=== PATIENT | male | born 1975 | race Caucasian/White ===

== ENCOUNTER 2019-07-24 13:14 | Emergency (ER) | payer BC, OTHER ==
[2019-07-24] MEDS ORDERED: Sodium Chloride 0.9% 1,000 ML IV ONE ×2 (13:17→15:03)
[2019-07-24] MEDS ORDERED: Ketorolac 30 MG/ML SDV IVPUSH ONE (13:48)
[2019-07-24] MEDS ORDERED: Ondansetron 4 MG/2 ML SDV IVPUSH ONE (13:48)
[2019-07-24 14:13] LABS: BLOOD UREA NITROGEN,BUN 11 mg/dL (7.0-18.0); CARBON DIOXIDE,CO2 24.7 mmol/L (21.0-32.0); CHLORIDE,CL 104 mmol/L (98-107); GLUCOSE RANDOM 127 mg/dL (74-106); LIPASE 287 U/L (73-393); POTASSIUM,K 3.9 mmol/L (3.5-5.1); SODIUM,NA 141 mmol/L (136-148)
--- NOTE | 2019-07-24 14:30 | EDM.PDOC ---
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 Past medical history: As per history of present illness and as reviewed below otherwise noncontributory. Surgical history: As per history of present illness and as reviewed below otherwise noncontributory. Social history: No reported history of drug or alcohol abuse. Family history: As per history of present illness and as reviewed below otherwise noncontributory. Physical exam: HEENT: Atraumatic, normocephalic, pupils reactive, negative for conjunctival pallor or scleral icterus, mucous membranes moist, throat clear, neck supple, nontender, trachea midline. Lungs: Clear to auscultation, breath sounds equal bilaterally, chest nontender. Heart: S1S2, regular, negative for clicks, rubs, or JVD. Abdomen: Soft, nondistended, nontender. Negative for masses or hepatosplenomegaly. Negative for costovertebral tenderness. Pelvis: Stable nontender. Genitourinary: Deferred. Rectal: Deferred. Extremities: Atraumatic, negative for cords or calf pain. Neurovascular unremarkable. Neuro: Awake, alert, oriented. Cranial nerves II through XII unremarkable. Cerebellum unremarkable. Motor and sensory unremarkable throughout. Exam nonfocal. Diagnostics: [CBC CMP UA lipase Abdomen pelvis with ] Therapeutics: [9 Zofran Toradol Morphine Cipro Zofran Hale Follow-up general surgery er referral for this week ] Impression: [Abdominal pain Cholelithiasis ] Definitive disposition and diagnosis as appropriate pending reevaluation and review of above. abdominal Pain Score (Numeric/FACES): 10 - Related Data Allergies Allergy/AdvReac Type Severity Reaction Status Date / Time No Known Allergies Allergy Verified 07/24/19 13:30 Home Meds: Home Meds . [No Known Home Meds] 07/24/19 [History] Past Medical History - Past Health History Medical/Surgical History: Denies Medical/Surgical History - Infectious Disease History Infectious Disease History: Reports: Chicken Pox Social & Family History - Family History Family Medical History: Noncontributory - Tobacco Use Smoking Status *Q: Current Every Day Smoker Years of Tobacco use: 20 Packs/Tins Daily: 0.5 - Caffeine Use Caffeine Use: Reports: Coffee - Recreational Drug Use Recreational Drug Use: No ED ROS GENERAL - Review of Systems Review Of Systems: See Below ED EXAM, GENERAL - Physical Exam Exam: See Below Course - Vital Signs Last Recorded V/S: Last Vital Signs Temp 97.7 F 07/24/19 13:30 Pulse 88 07/24/19 16:16 Resp 18 07/24/19 16:16 BP 153/94 H 07/24/19 16:16 Pulse Ox 94 L 07/24/19 16:16 - Orders/Labs/Meds Orders: Active Orders 24 hr Category Date Time Status Ciprofloxacin in D5W [Cipro in D5W 400 MG/200 ML] 400 Med 07/24/19 15:15 Active mg Premix Bag 1 bag IV Q12H Medication Orders Ciprofloxacin/Dextrose 400 mg/ (Premix) 200 mls @ 200 mls/hr IV Q12H JOBY Last Infusion: 07/24/19 16:15 Dose: 200 mls/hr Infusion: 07/24/19 16:11 Dose: 0 mls/hr Admin: 07/24/19 15:40 Dose: 200 mls/hr Labs: Laboratory Tests 07/24/19 07/24/19 07/24/19 Range/Units 13:35 13:45 13:45 WBC 15.58 H (4.0-11.0) K/uL RBC 5.55 (4.50-5.90) M/uL Hgb 17.0 (13.0-17.0) g/dL Hct 48.2 (38.0-50.0) % MCV 86.8 (80.0-98.0) fL MCH 30.6 (27.0-32.0) pg MCHC 35.3 (31.0-37.0) g/dL RDW Std Deviation 43.5 (28.0-62.0) fl RDW Coeff of Lea 14 (11.0-15.0) % Plt Count 231 (150-400) K/uL MPV 9.80 (7.40-12.00) fL Neut % (Auto) 81.7 H (48.0-80.0) % Lymph % (Auto) 8.9 L (16.0-40.0) % [place] % (Auto) 9.1 (0.0-15.0) % Eos % (Auto) 0.1 (0.0-7.0) % Baso % (Auto) 0.2 (0.0-1.5) % Neut # (Auto) 12.7 H (1.4-5.7) K/uL Lymph # (Auto) 1.4 (0.6-2.4) K/uL [place] # (Auto) 1.4 H (0.0-0.8) K/uL Eos # (Auto) 0.0 (0.0-0.7) K/uL Baso # (Auto) 0.0 (0.0-0.1) K/uL Nucleated RBC % 0.0 /100WBC Nucleated RBCs # 0 K/uL Sodium 141 (136-148) mmol/L Potassium 3.9 (3.5-5.1) mmol/L Chloride 104 (98-107) mmol/L Carbon Dioxide 24.7 (21.0-32.0) mmol/L BUN 11 (7.0-18.0) mg/dL Creatinine 0.9 (0.8-1.3) mg/dL Est Cr Clr Drug Dosing 117.36 mL/min Estimated GFR (MDRD) > 60.0 ml/min Glucose 127 H (74-106) mg/dL Calcium 9.4 (8.5-10.1) mg/dL Total Bilirubin 0.4 (0.2-1.0) mg/dL AST 16 (15-37) IU/L ALT 63 (14-63) IU/L Alkaline Phosphatase 89 (46-116) U/L Total Protein 8.0 (6.4-8.2) g/dL Albumin 4.1 (3.4-5.0) g/dL Globulin 3.9 (2.6-4.0) g/dL Albumin/Globulin Ratio 1.1 (0.9-1.6) Lipase 287 (73-393) U/L Urine Color YELLOW Urine Appearance CLEAR Urine pH 6.0 (5.0-8.0) Ur Specific [place] >= 1.030 (1.001-1.035) Urine Protein 30 H (NEGATIVE) mg/dL Urine Glucose (UA) NEGATIVE (NEGATIVE) mg/dL Urine Ketones NEGATIVE (NEGATIVE) mg/dL Urine Occult Blood TRACE-INTACT H (NEGATIVE) Urine Nitrite NEGATIVE (NEGATIVE) Urine Bilirubin SMALL H (NEGATIVE) Urine Urobilinogen 1.0 (<2.0) EU/dL Ur Leukocyte Esterase NEGATIVE (NEGATIVE) Urine RBC 1-3 (0-2/HPF) Urine WBC 2-5 (0-5/HPF) Ur Epithelial Cells RARE (NONE-FEW) Amorphous Sediment LIGHT (NEGATIVE) Urine Bacteria RARE (NEGATIVE) Urine Mucus MODERATE (NONE-MOD) Meds: Medications Generic Name Dose Route Start Last Admin Trade Name Freq PRN Reason Stop Dose Admin Ciprofloxacin/Dextrose 400 mg/ 200 mls @ 200 mls/hr 07/24/19 15:15 07/24/19 16:15 Premix IV 200 mls/hr Q12H JOBY Infusion Discontinued Medications Generic Name Dose Route Start Last Admin Trade Name Freq PRN Reason Stop Dose Admin Sodium Chloride 1,000 mls @ 999 mls/hr 07/24/19 13:17 07/24/19 13:58 Normal Saline IV 07/24/19 14:17 999 mls/hr STAT ONE Administration Sodium Chloride 1,000 mls @ 999 mls/hr 07/24/19 15:03 07/24/19 15:40 Normal Saline IV 07/24/19 16:03 999 mls/hr STAT ONE Administration Ketorolac Tromethamine 30 mg 07/24/19 13:48 07/24/19 13:58 Toradol IVPUSH 07/24/19 13:49 30 mg ONETIME ONE Administration Morphine Sulfate 2 mg 07/24/19 15:58 07/24/19 16:12 Morphine IVPUSH 07/24/19 15:59 2 mg ONETIME ONE Administration Ondansetron HCl 8 mg 07/24/19 13:48 07/24/19 13:58 Zofran IVPUSH 07/24/19 13:49 8 mg ONETIME ONE Administration Departure - Departure Time of Disposition: 16:37 Disposition: Home, Self-Care 01 Condition: Good Clinical Impression: Abdominal pain, Cholelithiasis - Discharge Information Referrals: PCP,None [Primary Care Provider] - Forms: ED Department Discharge Additional Instructions: Patient is prescribed Return if symptoms persist or worsen ER referral for general surgery this week [facility] - General Surgery [address], [address] [place] [address] The following information is given to patients seen in the emergency department who are being discharged to home. This information is to outline your options for follow-up care. We provide all patients seen in our emergency department with a follow-up referral. The need for follow-up, as well as the timing and circumstances, are variable depending upon the specifics of your emergency department visit. If you don't have a primary care physician on staff, we will provide you with a referral. We always advise you to contact your personal physician following an emergency department visit to inform them of the circumstance of the visit and for follow-up with them and/or the need for any referrals to a consulting specialist. The emergency department will also refer you to a specialist when appropriate. This referral assures that you have the opportunity for follow-up care with a specialist. All of these measure are taken in an effort to provide you with optimal care, which includes your follow-up. Under all circumstances we always encourage you to contact your private physician who remains a resource for coordinating your care. When calling for follow-up care, please make the office aware that this follow-up is from your recent emergency room visit. If for any reason you are refused follow-up, please contact the [facility] emergency department at and asked to speak to the emergency department charge nurse. Sepsis Event Note - Evaluation Sepsis Screening Result: No Definite Risk - Focused Exam Vital Signs: Vital Signs Temp Pulse Resp BP Pulse Ox 07/24/19 16:16 88 18 153/94 H 94 L 07/24/19 13:30 97.7 F 92 20 151/104 H 93 L Date Exam was Performed: 07/24/19 Time Exam was Performed: 16:35 - My Orders Last 24 Hours: My Active Orders 07/24/19 15:15 Ciprofloxacin in D5W [Cipro in D5W 400 MG/200 ML] 400 mg Premix Bag 1 bag IV Q12H - Assessment/Plan Last 24 Hours: My Active Orders 07/24/19 15:15 Ciprofloxacin in D5W [Cipro in D5W 400 MG/200 ML] 400 mg Premix Bag 1 bag IV Q12H
--- NOTE | 2019-07-24 14:40 | CT ---
CT abdomen and pelvis Technique: Multiple axial sections were obtained from above the dome of the diaphragm inferiorly through the pubic symphysis. Intravenous and oral contrast not utilized. Comparison: No prior abdominal imaging is available. Findings: Visualized lung bases show nothing acute. Irregular fatty infiltration is seen within the liver. Single large calcified gallstone is seen within the gallbladder measuring 3.0 cm. Spleen size appears within normal limits. Adrenal glands show no nodule. Pancreas is within normal limits. Kidneys show no abnormal calcifications. No hydronephrosis is seen. No ureteral calculi are seen. Aorta shows no aneurysm. No retroperitoneal adenopathy is seen. Appendix is seen which is normal in size. No pelvic mass or adenopathy is seen. No free fluid or inflammatory change is appreciated. Impression: 1. Irregular fatty infiltration within the liver. 2. Single 3.0 cm calcified gallstone within the gallbladder. 3. No additional abnormality is appreciated on noncontrast CT study of the abdomen and pelvis. Diagnostic code #2 Study was dictated in [place] Standard Time
[2019-07-24] MEDS ORDERED: Ciprofloxacin in D5W 400 MG in Premix Bag 1 BAG IV SCH ×2 (15:15)
[2019-07-24] MEDS ORDERED: Morphine 2 MG/ML Syringe IVPUSH ONE (15:58)
== END 2019-07-24 16:56 | disposition home or self-care (01) ==
LOC: MW.ED 13:14
DX: K80.20 Calculus of gallbladder without cholecystitis without obstruction (principal); F17.210 Nicotine dependence, cigarettes, uncomplicated
CPT/HCPCS: 74176; 80053; 81001; 83690; 85025; 96361; 96365; 96375; 99284; J0744; J1885; J2270; J2405; J7030

== ENCOUNTER 2019-07-26 14:20 | Inpatient (IN) | payer OTHER ==
[2019-07-26] MEDS ORDERED: cefOXitin 2 GM in Premix Bag 1 BAG IV ONE ×2 (15:29→17:13)
[2019-07-26] MEDS ORDERED: Lactated Ringers 1,000 ML IV SCH (15:30)
[2019-07-26] MEDS ORDERED: Morphine 10 MG/ML Syringe IVPUSH PRN (15:32)
[2019-07-26] MEDS ORDERED: Morphine 10 MG/ML Syringe IVPUSH ONE (16:58)
[2019-07-26] MEDS ORDERED: Lactated Ringers 1,000 ML IV ONE (17:02)
[2019-07-26] MEDS ORDERED: Acetaminophen 325 MG Tab PO PRN (17:39)
[2019-07-26] MEDS: Acetaminophen/HYDROcodone 325-5 MG Tab PO PRN ×2 (17:54→23:20)
[2019-07-26] MEDS ORDERED: Morphine 10 MG/ML Syringe ONE (19:35)
[2019-07-26] MEDS ORDERED: cefOXitin 1 GM in Premix Bag 1 BAG IV SCH ×2 (19:45→23:15)
[2019-07-26] MEDS: Morphine 10 MG/ML Syringe IVPUSH PRN (19:46)
[2019-07-26] MEDS: cefOXitin 1 GM in Premix Bag 1 BAG IV SCH (23:23)
[2019-07-27] MEDS: Lactated Ringers 1,000 ML IV SCH ×3 (02:26→22:31)
[2019-07-27] MEDS: cefOXitin 1 GM in Premix Bag 1 BAG IV SCH ×4 (05:43→20:16)
[2019-07-27] MEDS ORDERED: Propofol 200 MG/20 ML SDV ONE (06:59)
[2019-07-27] MEDS ORDERED: Lidocaine 2% 5 ML SDV ONE (07:00)
[2019-07-27] MEDS ORDERED: Midazolam 1 MG/ML 2 ML SDV ONE (07:00)
[2019-07-27] MEDS ORDERED: Ondansetron 4 MG/2 ML SDV ONE (07:00)
[2019-07-27] MEDS ORDERED: Rocuronium 100 MG/10 ML Syringe ONE (07:00)
[2019-07-27] MEDS ORDERED: fentaNYL 250 MCG/5 ML SDV ONE ×2 (07:00→08:51)
[2019-07-27] MEDS ORDERED: ceFAZolin 1 GM Vial ONE (07:29)
[2019-07-27] MEDS ORDERED: Bupivacaine 0.5% 10 ML SDV ONE (07:29)
[2019-07-27] MEDS ORDERED: Bupivacaine 0.5% 30 ML SDV ONE (07:39)
--- NOTE | 2019-07-27 07:50 | PCM.PREANE ---
Preanesthetic Assessment - Anesthesia/Transfusion/Family Hx Anesthesia History: Prior Anesthesia Without Reaction Family History of Anesthesia Reaction: No Transfusion History: No Prior Transfusion(s) - Review of Systems General: No Symptoms Pulmonary: No Symptoms Cardiovascular: No Symptoms Gastrointestinal: No Symptoms Neurological: No Symptoms Other: Reports: None - Physical Assessment NPO Status Date: 07/26/19 Vital Signs: Last Vital Signs Temp 96.8 F 07/26/19 15:45 Pulse 111 H 07/26/19 15:45 Resp 18 07/26/19 15:45 BP 142/87 H 07/26/19 15:45 Pulse Ox 93 L 07/26/19 15:45 Height: 6 ft Weight: 123.785 kg ASA Class: 2 Airway Class: Mallampati = 2 Dentition: Reports: Normal Dentition ROM/Head Extension: Full Lungs: Clear to Auscultation, Normal Respiratory Effort Cardiovascular: Regular Rate, Regular Rhythm - Allergies Allergies/Adverse Reactions: Allergies Allergy/AdvReac Type Severity Reaction Status Date / Time No Known Allergies Allergy Verified 07/27/19 11:22 - Blood Blood Available: No - Anesthesia Plan Pre-Op Medication Ordered: None - Acknowledgements Anesthesia Type Planned: General Anesthesia Pt an Appropriate Candidate for the Planned Anesthesia: Yes Alternatives and Risks of Anesthesia Discussed w Pt/Guardian: Yes Pt/Guardian Understands and Agrees with Anesthesia Plan: Yes Additional Comments: PMH: smoker, anxiety PLAN: get PreAnesthesia Questionnaire - Past Health History Medical/Surgical History: Denies Medical/Surgical History HEENT History: Reports: Impaired Vision Other HEENT History: Pt wears glasses Respiratory History: Reports: Sleep Apnea Other Respiratory History: Pt states "I stop breathing in my sleep, my girlfriend tells me" and that he thinks he has sleep apnea, but has not been diagnosed Other Gastrointestinal History: pt is coming in to the hospital to have his gallbladder removed on 07/27/2019 Musculoskeletal History: Reports: Back Pain, Chronic Other Musculoskeletal History: Pt states that he has had chronic back pain for 15 years Psychiatric History: Reports: Anxiety - Infectious Disease History Infectious Disease History: Reports: Chicken Pox - Past Surgical History Head Surgeries/Procedures: Reports: None Respiratory Surgical History: Reports: None Musculoskeletal Surgical History: Reports: Other (See Below) Other Musculoskeletal Surgeries/Procedures:: pt states that he has had a Left knee scope Dermatological Surgical History: Reports: None - SUBSTANCE USE Smoking Status *Q: Current Every Day Smoker Tobacco Use Within Last Twelve Months: Cigarettes, Snuff/Dip Second Hand Smoke Exposure: Yes Days Per Week of Alcohol Use: 2 Number of Drinks Per Day: 5 Total Drinks Per Week: 10 Date of Last Drink: 07/22/19 Time of Last Drink: 00:00 Recreational Drug Use History: No - HOME MEDS Home Medications: Home Meds Acetaminophen/HYDROcodone [Gilson 325-5 MG] 1 tab PO Q6H PRN #25 tablet 07/30/19 [Rx] - CURRENT (IN HOUSE) MEDS Current Meds: Current Medications Discontinued Medications Acetaminophen (Tylenol) 325 mg PO Q4H PRN PRN Reason: Fever Greater Than 101 Hydrocodone Bitart/Acetaminophen (Gilson 325-5 Mg) 1 - 2 tab PO Q4H PRN PRN Reason: Pain (moderate 4-6) Cefoxitin Sodium 2 gm/ Premix 50 mls @ 100 mls/hr IV ONETIME ONE Stop: 07/26/19 17:06 Last Admin: 07/26/19 17:13 Dose: 100 mls/hr Cefoxitin Sodium 1 gm/ Premix 50 mls @ 100 mls/hr IV Q6H [facility] [place] Lactated Ringer's (Ringers, Lactated) 1,000 mls @ 125 mls/hr IV ASDIRECTED [facility] Last Admin: 07/26/19 17:02 Dose: 125 mls/hr Morphine Sulfate (Morphine) 0 mg IVPUSH Q1H PRN PRN Reason: Pain (severe 7-10) Last Admin: 07/26/19 16:58 Dose: 5 mg
[2019-07-27] MEDS ORDERED: Phenylephrine/Normal Saline 100 MCG/ML 10 ML Syringe ONE (08:31)
[2019-07-27] MEDS ORDERED: ePHEDrine 50 MG/ML SDV ONE (08:46)
[2019-07-27] MEDS ORDERED: HYDROmorphone 2 MG/ML Syringe ONE (09:31)
[2019-07-27] MEDS ORDERED: Sugammadex Sodium 200 MG/2 ML VIAL ONE (10:03)
[2019-07-27] MEDS ORDERED: Ketorolac 30 MG/ML SDV ONE (10:09)
[2019-07-27] MEDS ORDERED: Morphine 10 MG/ML Syringe IVPUSH PRN (10:40)
[2019-07-27] MEDS ORDERED: Albuterol 0.083% 2.5 MG/3 ML Neb Soln NEB PRN (10:49)
[2019-07-27] MEDS ORDERED: Atropine 0.1 MG/ML 10 ML Syringe IVPUSH PRN ×2 (10:49)
[2019-07-27] MEDS ORDERED: EPINEPHrine 1:10,000 1 MG/10 ML Syringe IVPUSH PRN (10:49)
[2019-07-27] MEDS ORDERED: 50% Dextrose in Water 50 ML Syringe IVPUSH PRN (10:49)
[2019-07-27] MEDS ORDERED: Naloxone 0.4 MG/ML Syringe IVPUSH PRN (10:49)
[2019-07-27] MEDS ORDERED: fentaNYL 100 MCG/2 ML SDV IVPUSH PRN (10:49)
--- NOTE | 2019-07-27 10:50 | PCM.OPNOTE ---
- General Post-Op/Procedure Note Date of Surgery/Procedure: 07/27/19 Operative Procedure(s): Attempted laparoscopic cholecystectomy with conversion to open cholecystectomy Pre Op Diagnosis: Cholelithiasis with cholecystitis Post-Op Diagnosis: Cholelithiasis with acute gangrenous cholecystitis Anesthesia Technique: General ET Tube (ASA II) Primary Surgeon: Carlos Quigley University Intern: Pallavi Kingsley University Intern: Dionne Howell Reason University Intern Was Necessary: Surgical exposure Fluid Replacement, Intraop: 2,200 Output, Urine Amount: 125 EBL in mLs: 150 Condition: Good Free Text/Narrative:: Intake & Output 07/26/19 07/27/19 07/27/19 19:59 03:59 11:59 Intake Total 2950 Balance 2950 DICTATION [id number] CPT CODE 94226
--- NOTE | 2019-07-27 11:42 | PCM.POSTAN ---
POST ANESTHESIA ASSESSMENT - MENTAL STATUS Mental Status: Alert, Oriented - VITAL SIGNS Vital Signs: Last Vital Signs Temp 98.1 F 07/27/19 10:43 Pulse 96 07/27/19 11:38 Resp 16 07/27/19 11:38 BP 129/97 H 07/27/19 11:38 Pulse Ox 95 07/27/19 11:38 - RESPIRATORY Respiratory Status: Respiratory Rate WNL, Airway Patent, O2 Saturation Stable - CARDIOVASCULAR CV Status: Pulse Rate WNL, Blood Pressure Stable - GASTROINTESTINAL GI Status: No Symptoms - POST OP HYDRATION Hydration Status: Adequate & Stable
[2019-07-27] MEDS: Morphine 10 MG/ML Syringe IVPUSH PRN ×5 (12:19→23:59)
--- NOTE | 2019-07-27 12:39 | OR ---
SURGEON: Carlos Quigley M.D. DATE OF PROCEDURE: 07/27/2019 OPERATION PERFORMED: Attempted laparoscopic cholecystectomy with conversion to open. PRIMARY SURGEON: Carlos Quigley MD. RAIL TECHNICIAN: wardrobe assistant: Pallavi Kingsley MD. ANESTHESIA: General endotracheal. ASA CLASSIFICATION: II. PREOPERATIVE DIAGNOSIS: Cholelithiasis. POSTOPERATIVE DIAGNOSIS: Cholelithiasis with gangrenous cholecystitis. ESTIMATED BLOOD LOSS: 150 mL. INTRAOPERATIVE FLUID REPLACEMENT: 2200 mL of crystalloid. INTRAOPERATIVE URINE OUTPUT: 125 mL. DESCRIPTION OF PROCEDURE: The patient was taken to the operating room, placed on the operating table in the supine position. Time-out was called for appropriate identification of the patient and procedure. Following satisfactory attainment of general endotracheal anesthesia, a Corley catheter was placed in the patient's urinary bladder. Thigh-high TEDs and sequential compression boots had been placed. Footboard was placed at the bed. A Corley catheter was placed. The abdomen was then prepped with DuraPrep solution. Sterile drapes were applied. Initial skin incision was made below the umbilicus. The incision had been preemptively infiltrated with 0.5% Marcaine solution. A skin incision was made and deepened through the subcutaneous tissue. Hemostasis was obtained with the use of electrocautery. The Veress needle was introduced into the peritoneal cavity. Saline drop test was positive. Carbon dioxide pneumoperitoneum was established with the relief initially set at 13 cm of water and subsequently increased to 15 cm. Once satisfactory pneumoperitoneum was established, 5 mm camera and port were placed through the infraumbilical incision. Under camera vision, 12 mm subxiphoid, 5 mm midclavicular, and 5 mm anterior axillary ports were placed. Again, each incision had preemptively been infiltrated with 0.5% Marcaine solution. With all our instruments in place, we could barely visualize the gallbladder secondary to dense adhesions from the omentum. I was able to tease some of these down, but the gallbladder was very acutely inflamed and it was not felt safe to proceed laparoscopically. Therefore, laparoscopic instrumentation was removed and the open instrumentation brought to the field. Right subcostal incision was made connecting the 12 mm subxiphoid, midclavicular, and anterior axillary incisions. Dissection was carried through the subcutaneous tissue obtaining hemostasis with the use of electrocautery. The right rectus sheath was divided with electrocautery. The rectus abdominis muscle was divided with electrocautery. The posterior rectus sheath and peritoneum were picked up between hemostats and sharply incised. This was then opened with the use of electrocautery. Adhesions were taken down. The gallbladder was violaceous in color with gangrenous changes. Packs were placed into the abdomen for exposure. It was necessary to decompress the gallbladder, which initially was done with the needle catheter and followed by regular gallbladder aspiration trocar. With that accomplished, I was able to grasp the gallbladder, although again it was acutely inflamed and basically came apart on me. Dissection medially was very difficult and hazardous. It was therefore elected to use a dome down technique. The peritoneal reflection off the gallbladder was incised and finger dissection was carried out against the bed of the gallbladder in the gallbladder liver interface avoiding injury to the liver. This was all taken down primarily with gentle blunt dissection using finger dissection as well as right angles and peanut dissection. Dissection was carried as far medially as we could see, and then again using gentle dissection with the right angle clamp, I was able to identify the cystic duct and cystic artery. These structures were serially hemoclipped as well as ligated with 2-0 Vicryl ties. The gallbladder was then amputated. Some bile had been spilled, although with only a solitary stone, there was no stone spilled. The right upper quadrant was then irrigated with several 100 mL of 1% Ancef solution. All fluid was aspirated, and the bed of the gallbladder inspected. No bleeding was noted, no bile leak was noted, and there did not appear to be any bile leak from the cystic duct. Surgicel was placed into the bed of the gallbladder. A large round Ayush drain was placed into the bed of the gallbladder through a separate stab incision on the abdominal wall. This was secured to the skin with a 2-0 silk suture. Our attention was now focused on closure of the abdominal cavity. The posterior rectus sheath and peritoneum were closed with running 0 Vicryl. The anterior rectus sheath and linea alba were closed with interrupted 0 Ethibond sutures. An On-Q catheter was placed in the subcutaneous tissue and secured to the skin with a Tegaderm. The subcutaneous tissue was then closed with 3-0 Vicryl. Skin edges were reapproximated with skin clips. The infraumbilical incision was closed in 2 layers approximating the subcutaneous tissue with 3-0 Vicryl and the skin with skin clips. Sterile dressings were applied and taped securely in place. Sponge, needle, and instrument counts were all correct. Corley catheter was removed prior to emergence from anesthesia. Following emergence from anesthesia and extubation, the patient was taken to recovery room in stable condition. VIVI / SANDRA /[id number]
[2019-07-27] MEDS: Acetaminophen/HYDROcodone 325-5 MG Tab PO PRN ×3 (12:57→22:32)
[2019-07-27] MEDS ORDERED: Ondansetron 4 MG/2 ML SDV IVPUSH PRN (16:28)
[2019-07-27] MEDS: Ondansetron 4 MG/2 ML SDV IVPUSH PRN (22:49)
[2019-07-28] MEDS: Acetaminophen/HYDROcodone 325-5 MG Tab PO PRN ×5 (02:59→22:46)
[2019-07-28] MEDS: cefOXitin 1 GM in Premix Bag 1 BAG IV SCH ×4 (02:59→20:52)
[2019-07-28] MEDS: Lactated Ringers 1,000 ML IV SCH ×2 (08:10→18:01)
--- NOTE | 2019-07-28 08:13 | PCM.SURGPN ---
- General Info Date of Service: 07/28/19 POD#: 1 Post-Op Diagnosis: Gangrenous cholecystitis w/ cholelithiasis Functional Status: Reports: Pain Controlled, Tolerating Diet, Ambulating, Urinating, Incentive Spirometry - Review of Systems General: Denies: Fever, Weakness, Fatigue HEENT: Reports: No Symptoms Pulmonary: Reports: Cough. Denies: Shortness of Breath, Pleuritic Chest Pain Cardiovascular: Denies: Chest Pain, Palpitations, Dyspnea on Exertion Gastrointestinal: Reports: Abdominal Pain (incisional pain only), Decreased Appetite, Flatus. Denies: Diarrhea, Hematochezia, Melena, Nausea, Vomiting Genitourinary: Denies: Dysuria, Frequency, Burning, Pain, Urgency Musculoskeletal: Reports: No Symptoms Skin: Reports: No Symptoms Neurological: Reports: No Symptoms Psychiatric: Reports: No Symptoms - Patient Data Vitals - Most Recent: Last Vital Signs Temp 97.5 F 07/28/19 04:46 Pulse 114 H 07/28/19 04:46 Resp 23 H 07/28/19 04:46 BP 160/92 H 07/28/19 04:46 Pulse Ox 93 L 07/28/19 04:46 Weight - Most Recent: 272 lb 14.4 oz I&O - Last 24 Hours: Intake & Output 07/27/19 07/28/19 07/28/19 19:59 03:59 11:59 Intake Total 850 2151 Output Total 740 915 Balance 110 1236 Med Orders - Current: Current Medications Acetaminophen (Tylenol) 325 mg PO Q4H PRN PRN Reason: Fever Greater Than 101 Hydrocodone Bitart/Acetaminophen ([place] 325-5 Mg) 1 - 2 tab PO Q4H PRN PRN Reason: Pain Last Admin: 07/28/19 02:59 Dose: 2 tab Hydrocodone Bitart/Acetaminophen ([place] 325-5 Mg) 1 - 2 tab PO Q4H PRN PRN Reason: Pain (moderate 4-6) Al Hydroxide/Mg Hydroxide (Mag-Al Plus) 30 ml PO Q3H PRN PRN Reason: Heartburn Albuterol (Proventil Neb Soln) 2.5 mg NEB ONETIME PRN PRN Reason: Wheezing Atropine Sulfate (Atropine 0.1 Mg/Ml) 0.5 mg IVPUSH ASDIRECTED PRN PRN Reason: Hypo-perfusion Atropine Sulfate (Atropine 0.1 Mg/Ml) 1 mg IVPUSH ASDIRECTED PRN PRN Reason: Hypo-Perfusion Dextrose/Water (Dextrose 50% In Water) 50 ml IVPUSH ASDIRECTED PRN PRN Reason: Hypoglycemia Epinephrine HCl (Epinephrine 1:10,000) 1 mg IVPUSH ASDIRECTED PRN PRN Reason: ACLS Guidelines Fentanyl (Sublimaze) 50 - 100 mcg IVPUSH Q5M PRN PRN Reason: Pain Lactated Ringer's (Ringers, Lactated) 1,000 mls @ 125 mls/hr IV ASDIRECTED [facility] Last Admin: 07/27/19 22:31 Dose: 125 mls/hr Lactated Ringer's (Ringers, Lactated) 1,000 mls @ 125 mls/hr IV ASDIRECTED [facility] Cefoxitin Sodium 1 gm/ Premix 50 mls @ 100 mls/hr IV Q6H [facility] Stop: 07/28/19 23:30 Last Admin: 07/28/19 02:59 Dose: 100 mls/hr Morphine Sulfate (Morphine) 0 mg IVPUSH Q1H PRN PRN Reason: Pain (severe 7-10) Last Admin: 07/27/19 23:59 Dose: 2 mg Morphine Sulfate (Morphine) 0 mg IVPUSH Q30M PRN PRN Reason: Pain Naloxone HCl (Narcan) 0.1 mg IVPUSH ASDIRECTED PRN PRN Reason: Respiratory Depression Ondansetron HCl (Zofran) 4 mg IVPUSH Q6H PRN PRN Reason: Nausea/Vomiting Last Admin: 07/27/19 22:49 Dose: 4 mg Ondansetron HCl (Zofran) 4 mg IVPUSH Q6H PRN PRN Reason: Nausea/Vomiting Discontinued Medications Bupivacaine HCl (Sensorcaine-Mpf 0.5%) Confirm Administered Dose 30 ml .ROUTE .STK-MED ONE Stop: 07/27/19 07:30 Bupivacaine HCl (Marcaine 0.5%) Confirm Administered Dose 120 ml .ROUTE .STK- MED ONE Stop: 07/27/19 07:40 Cefazolin Sodium (Ancef) Confirm Administered Dose 1 gm .ROUTE .STK-MED ONE Stop: 07/27/19 07:30 Ephedrine Sulfate (Ephedrine Sulfate) Confirm Administered Dose 50 mg .ROUTE .STK-MED ONE Stop: 07/27/19 08:47 Fentanyl (Sublimaze) Confirm Administered Dose 250 mcg .ROUTE .STK-MED ONE Stop: 07/27/19 07:01 Fentanyl (Sublimaze) Confirm Administered Dose 250 mcg .ROUTE .STK-MED ONE Stop: 07/27/19 08:52 Hydromorphone HCl (Dilaudid) Confirm Administered Dose 2 mg .ROUTE .STK-MED ONE Stop: 07/27/19 09:32 Cefoxitin Sodium 2 gm/ Premix 50 mls @ 100 mls/hr IV ONETIME ONE Stop: 07/26/19 15:58 Last Admin: 07/26/19 17:13 Dose: 100 mls/hr Cefoxitin Sodium 1 gm/ Premix 50 mls @ 100 mls/hr IV Q6H [facility] Lactated Ringer's (Ringers, Lactated) 1,000 mls @ 125 mls/hr IV ASDIRECTED [facility] Last Admin: 07/26/19 16:50 Dose: 125 mls/hr Cefoxitin Sodium 1 gm/ Premix 50 mls @ 100 mls/hr IV Q6H [facility] Stop: 07/28/19 23:30 Last Admin: 07/27/19 15:44 Dose: Not Given Ketorolac Tromethamine (Toradol) Confirm Administered Dose 30 mg .ROUTE .STK- MED ONE Stop: 07/27/19 10:10 Lidocaine (Xylocaine-Mpf 2%) Confirm Administered Dose 5 ml .ROUTE .STK-MED ONE Stop: 07/27/19 07:01 Midazolam HCl (Versed 1 Mg/Ml) Confirm Administered Dose 2 mg .ROUTE .STK-MED ONE Stop: 07/27/19 07:01 Morphine Sulfate (Morphine) 0 mg IVPUSH Q1H PRN PRN Reason: Pain (severe 7-10) Last Admin: 07/26/19 16:58 Dose: 5 mg Morphine Sulfate (Morphine) Confirm Administered Dose 10 mg .ROUTE .STK-MED ONE Stop: 07/26/19 19:36 Last Admin: 07/26/19 19:58 Dose: Not Given Ondansetron HCl (Zofran) Confirm Administered Dose 4 mg .ROUTE .STK-MED ONE Stop: 07/27/19 07:01 Phenylephrine HCl (Phenylephrine In Ns 100 Mcg/Ml) Confirm Administered Dose 1 mg .ROUTE .STK-MED ONE Stop: 07/27/19 08:32 Propofol (Diprivan 20 Ml) Confirm Administered Dose 200 mg .ROUTE .STK-MED ONE Stop: 07/27/19 07:00 Rocuronium [place] (Zemuron) Confirm Administered Dose 100 mg .ROUTE .STK-MED ONE Stop: 07/27/19 07:01 Sugammadex Sodium (Bridion) Confirm Administered Dose 200 mg .ROUTE .STK-MED ONE Stop: 07/27/19 10:04 - Exam Wound/Incisions: Dressing Dry and Intact General: Alert, Oriented, Cooperative, Mild Distress HEENT: Pupils Equal, Pupils Reactive Lungs: Clear to Auscultation, Normal Respiratory Effort. No: Wheezing Cardiovascular: Regular Rate, Regular Rhythm GI/Abdominal Exam: Soft, No Distention, Tender, Abnormal Bowel Sounds ( hypoactive). No: Guarding, Rigid, Rebound Extremities: Normal Inspection Skin: Warm, Dry, Intact Neurological: No New Focal Deficit Psy/Mental Status: Alert, Normal Affect, Normal Mood Sepsis Event Note - Evaluation Sepsis Screening Result: Sepsis Risk - Focused Exam Vital Signs: Vital Signs Temp Pulse Resp BP Pulse Ox 07/28/19 04:46 97.5 F 114 H 23 H 160/92 H 93 L 07/28/19 00:00 96.9 F 127 H 23 H 159/99 H 91 L Date Exam was Performed: 07/28/19 Time Exam was Performed: 08:08 - Problem List & Annotations (1) Acute gangrenous cholecystitis SNOMED Code(s): 69568859 Code(s): K81.0 - ACUTE CHOLECYSTITIS Status: Acute Priority: High Current Visit: Yes (2) Cholelithiasis SNOMED Code(s): 263810435 Code(s): K80.20 - CALCULUS OF GALLBLADDER W/O CHOLECYSTITIS W/O OBSTRUCTION Status: Acute Priority: High Current Visit: No Qualifiers: Cholelithiasis location: gallbladder Cholecystitis presence: with cholecystitis Cholecystitis acuity: acute Biliary obstruction: without biliary obstruction Qualified Code(s): K80.00 - Calculus of gallbladder with acute cholecystitis without obstruction - Problem List Review Problem List Initiated/Reviewed/Updated: Yes - My Orders Last 24 Hours: Active Orders 24 hr Category Date Time Status Antiembolic Devices [RC] PER UNIT ROUTINE Care 07/27/19 10:40 Active Antiembolic Devices [RC] PER UNIT ROUTINE Care 07/27/19 10:40 Active Blood Glucose Check, Bedside [RC] PRN Care 07/27/19 10:49 Active Capnography Monitoring [RT End Tidal CO2 Monitoring] [ Care 07/27/19 11:50 Active RC] ASDIRECTED Notify Provider Vital Signs [RC] ASDIRECTED Care 07/27/19 10:49 Active Overnight Pulse Oximetry [RC] Click to Edit Care 07/27/19 11:49 Active Overnight Pulse Oximetry [RC] Click to Edit Care 07/27/19 11:53 Active Oxygen Therapy [RC] PRN Care 07/27/19 10:40 Active Oxygen Therapy [RC] PRN Care 07/27/19 10:43 Active Oxygen Therapy [RC] PRN Care 07/27/19 10:49 Active Pulse Oximetry [RC] INTERMITTENT Care 07/27/19 10:40 Active Pulse Oximetry [RC] INTERMITTENT Care 07/27/19 10:43 Active RT Aerosol Therapy [RC] ASDIRECTED Care 07/27/19 10:49 Active RT Aerosol Therapy [RC] ASDIRECTED Care 07/27/19 10:49 Active RT Aerosol Therapy [RC] ASDIRECTED Care 07/27/19 10:49 Active RT Incentive Spirometry [RC] Q1HWA Care 07/27/19 10:43 Active Up ad Felicita [RC] PER UNIT ROUTINE Care 07/27/19 10:40 Active Vital Signs [RC] PER UNIT ROUTINE Care 07/27/19 10:40 Active Vital Signs [RC] Q5M Care 07/27/19 10:49 Active Advance Diet Instructions [DIET] Diet 07/27/19 Dinner Active Regular Diet [DIET] Diet 07/27/19 Lunch Active Acetaminophen/HYDROcodone [[place] 325-5 MG] Med 07/27/19 10:40 Active 1 - 2 tab PO Q4H PRN Albuterol [Proventil Neb Soln] Med 07/27/19 10:49 Active 2.5 mg NEB ONETIME PRN Alum Hydrox/Mag Hydrox/Simeth [Mag-Al Plus] Med 07/28/19 08:06 Ordered 30 ml PO Q3H PRN Atropine [Atropine 0.1 MG/ML] Med 07/27/19 10:49 Active 0.5 mg IVPUSH ASDIRECTED PRN Atropine [Atropine 0.1 MG/ML] Med 07/27/19 10:49 Active 1 mg IVPUSH ASDIRECTED PRN Dextrose 50% in Water Med 07/27/19 10:49 Active 50 ml IVPUSH ASDIRECTED PRN EPINEPHrine [EPINEPHrine 1:10,000] Med 07/27/19 10:49 Active 1 mg IVPUSH ASDIRECTED PRN Lactated Ringers [Ringers, Lactated] 1,000 ml Med 07/27/19 10:45 Active IV ASDIRECTED Morphine Med 07/27/19 10:40 Active See Dose Instructions IVPUSH Q30M PRN Naloxone [Narcan] Med 07/27/19 10:49 Active 0.1 mg IVPUSH ASDIRECTED PRN Ondansetron [Zofran] Med 07/27/19 16:28 Active 4 mg IVPUSH Q6H PRN cefOXitin [Mefoxin in Dextrose,Iso-Osm 1 GM/50 ML] 1 gm Med 07/27/19 14:00 Active Premix Bag 1 bag IV Q6H fentaNYL [Sublimaze] Med 07/27/19 10:49 Active 50 - 100 mcg IVPUSH Q5M PRN Pulse Oximetry Continuous Monitoring [OM.PC] Routine Oth 07/27/19 11:53 Ordered RT Supplemental Oxygen Titration [RESPCARE] Urgent Oth 07/27/19 11:51 Pending Sequential Compression Device [OM.PC] Routine Oth 07/27/19 10:40 Ordered Medication Orders Acetaminophen (Tylenol) 325 mg PO Q4H PRN PRN Reason: Fever Greater Than 101 Hydrocodone Bitart/Acetaminophen ([place] 325-5 Mg) 1 - 2 tab PO Q4H PRN PRN Reason: Pain Last Admin: 07/28/19 02:59 Dose: 2 tab Admin: 07/27/19 22:32 Dose: 2 tab Admin: 07/27/19 18:33 Dose: 2 tab Admin: 07/27/19 12:57 Dose: 2 tab Admin: 07/26/19 23:20 Dose: 2 tab Admin: 07/26/19 17:54 Dose: 1 tab Hydrocodone Bitart/Acetaminophen ([place] 325-5 Mg) 1 - 2 tab PO Q4H PRN PRN Reason: Pain (moderate 4-6) Al Hydroxide/Mg Hydroxide (Mag-Al Plus) 30 ml PO Q3H PRN PRN Reason: Heartburn Albuterol (Proventil Neb Soln) 2.5 mg NEB ONETIME PRN PRN Reason: Wheezing Atropine Sulfate (Atropine 0.1 Mg/Ml) 0.5 mg IVPUSH ASDIRECTED PRN PRN Reason: Hypo-perfusion Atropine Sulfate (Atropine 0.1 Mg/Ml) 1 mg IVPUSH ASDIRECTED PRN PRN Reason: Hypo-Perfusion Dextrose/Water (Dextrose 50% In Water) 50 ml IVPUSH ASDIRECTED PRN PRN Reason: Hypoglycemia Epinephrine HCl (Epinephrine 1:10,000) 1 mg IVPUSH ASDIRECTED PRN PRN Reason: ACLS Guidelines Fentanyl (Sublimaze) 50 - 100 mcg IVPUSH Q5M PRN PRN Reason: Pain Lactated Ringer's (Ringers, Lactated) 1,000 mls @ 125 mls/hr IV ASDIRECTED [facility] Last Admin: 07/27/19 22:31 Dose: 125 mls/hr Infusion: 07/27/19 21:02 Dose: 125 mls/hr Admin: 07/27/19 13:02 Dose: 125 mls/hr Infusion: 07/27/19 10:26 Dose: 125 mls/hr Admin: 07/27/19 02:26 Dose: 125 mls/hr Lactated Ringer's (Ringers, Lactated) 1,000 mls @ 125 mls/hr IV ASDIRECTED [facility] Cefoxitin Sodium 1 gm/ Premix 50 mls @ 100 mls/hr IV Q6H [facility] Stop: 07/28/19 23:30 Last Admin: 07/28/19 02:59 Dose: 100 mls/hr Infusion: 07/27/19 20:46 Dose: 100 mls/hr Admin: 07/27/19 20:16 Dose: 100 mls/hr Infusion: 07/27/19 15:13 Dose: 100 mls/hr Admin: 07/27/19 14:43 Dose: 100 mls/hr Morphine Sulfate (Morphine) 0 mg IVPUSH Q1H PRN PRN Reason: Pain (severe 7-10) Last Admin: 07/27/19 23:59 Dose: 2 mg Admin: 07/27/19 19:33 Dose: 2 mg Admin: 07/27/19 17:20 Dose: 5 mg Admin: 07/27/19 14:59 Dose: 2 mg Admin: 07/27/19 12:19 Dose: 5 mg Admin: 07/26/19 19:46 Dose: 5 mg Morphine Sulfate (Morphine) 0 mg IVPUSH Q30M PRN PRN Reason: Pain Naloxone HCl (Narcan) 0.1 mg IVPUSH ASDIRECTED PRN PRN Reason: Respiratory Depression Ondansetron HCl (Zofran) 4 mg IVPUSH Q6H PRN PRN Reason: Nausea/Vomiting Last Admin: 07/27/19 22:49 Dose: 4 mg Ondansetron HCl (Zofran) 4 mg IVPUSH Q6H PRN PRN Reason: Nausea/Vomiting - Assessment Assessment (Free Text/Narrative):: Patient is hemodynamically stable. States he slept better last night. c/o incisional pain and heartburn. - Plan Plan (Free Text/Narrative):: Ambulate at least 6X daily. Liquid antacid for heartburn. Continue IV fluids, drain and On-Q.
[2019-07-28] MEDS: Morphine 10 MG/ML Syringe IVPUSH PRN (08:17)
[2019-07-28] MEDS: Ondansetron 4 MG/2 ML SDV IVPUSH PRN (08:36)
[2019-07-28] MEDS: Aluminum Hydroxide/Magnesium Hydroxide/Simethicone Susp 30 ML Cup PO PRN ×3 (08:41→18:45)
[2019-07-29] MEDS: Morphine 10 MG/ML Syringe IVPUSH PRN ×2 (01:27→13:27)
[2019-07-29] MEDS: Lactated Ringers 1,000 ML IV SCH ×3 (02:30→23:13)
[2019-07-29] MEDS: Acetaminophen/HYDROcodone 325-5 MG Tab PO PRN ×6 (02:36→23:19)
[2019-07-29] MEDS: Aluminum Hydroxide/Magnesium Hydroxide/Simethicone Susp 30 ML Cup PO PRN ×2 (06:26→17:09)
--- NOTE | 2019-07-29 13:44 | PCM.SURGPN ---
- General Info Date of Service: 07/29/19 POD#: 2 Functional Status: Reports: Pain Controlled, Tolerating Diet, Ambulating, Urinating - Review of Systems General: Denies: Fever, Weakness, Fatigue, Malaise, Chills HEENT: Reports: No Symptoms Pulmonary: Denies: Shortness of Breath, Pleuritic Chest Pain Cardiovascular: Denies: Chest Pain Gastrointestinal: Reports: Abdominal Pain (incisional), Flatus. Denies: Diarrhea, Difficulty Swallowing, Hematochezia, Melena, Nausea, Vomiting Genitourinary: Denies: Dysuria, Frequency, Burning, Pain, Urgency Musculoskeletal: Reports: No Symptoms Skin: Denies: Cyanosis, Jaundice, Mottled Neurological: Reports: No Symptoms Psychiatric: Reports: No Symptoms - Patient Data Vitals - Most Recent: Last Vital Signs Temp 96.8 F 07/29/19 04:25 Pulse 109 H 07/29/19 04:25 Resp 20 07/29/19 04:25 BP 137/77 07/29/19 04:25 Pulse Ox 91 L 07/29/19 04:25 Weight - Most Recent: 272 lb 14.4 oz I&O - Last 24 Hours: Intake & Output 07/29/19 07/29/19 07/29/19 03:59 11:59 19:59 Intake Total 1225 Output Total 20 Balance 1225 -20 Med Orders - Current: Current Medications Acetaminophen (Tylenol) 325 mg PO Q4H PRN PRN Reason: Fever Greater Than 101 Hydrocodone Bitart/Acetaminophen ([place] 325-5 Mg) 1 - 2 tab PO Q4H PRN PRN Reason: Pain Last Admin: 07/29/19 06:25 Dose: 2 tab Hydrocodone Bitart/Acetaminophen ([place] 325-5 Mg) 1 - 2 tab PO Q4H PRN PRN Reason: Pain (moderate 4-6) Last Admin: 07/29/19 10:37 Dose: 2 tab Al Hydroxide/Mg Hydroxide (Mag-Al Plus) 30 ml PO Q3H PRN PRN Reason: Heartburn Last Admin: 07/29/19 06:26 Dose: 30 ml Lactated Ringer's (Ringers, Lactated) 1,000 mls @ 80 mls/hr IV ASDIRECTED [facility] Last Admin: 07/29/19 10:39 Dose: 125 mls/hr Morphine Sulfate (Morphine) 0 mg IVPUSH Q1H PRN PRN Reason: Pain (severe 7-10) Last Admin: 07/29/19 13:27 Dose: 2 mg Morphine Sulfate (Morphine) 0 mg IVPUSH Q30M PRN PRN Reason: Pain Ondansetron HCl (Zofran) 4 mg IVPUSH Q6H PRN PRN Reason: Nausea/Vomiting Last Admin: 07/28/19 08:36 Dose: 4 mg Ondansetron HCl (Zofran) 4 mg IVPUSH Q6H PRN PRN Reason: Nausea/Vomiting Discontinued Medications Albuterol (Proventil Neb Soln) 2.5 mg NEB ONETIME PRN PRN Reason: Wheezing Atropine Sulfate (Atropine 0.1 Mg/Ml) 0.5 mg IVPUSH ASDIRECTED PRN PRN Reason: Hypo-perfusion Atropine Sulfate (Atropine 0.1 Mg/Ml) 1 mg IVPUSH ASDIRECTED PRN PRN Reason: Hypo-Perfusion Bupivacaine HCl (Sensorcaine-Mpf 0.5%) Confirm Administered Dose 30 ml .ROUTE .STK-MED ONE Stop: 07/27/19 07:30 Bupivacaine HCl (Marcaine 0.5%) Confirm Administered Dose 120 ml .ROUTE .STK- MED ONE Stop: 07/27/19 07:40 Cefazolin Sodium (Ancef) Confirm Administered Dose 1 gm .ROUTE .STK-MED ONE Stop: 07/27/19 07:30 Dextrose/Water (Dextrose 50% In Water) 50 ml IVPUSH ASDIRECTED PRN PRN Reason: Hypoglycemia Ephedrine Sulfate (Ephedrine Sulfate) Confirm Administered Dose 50 mg .ROUTE .STK-MED ONE Stop: 07/27/19 08:47 Epinephrine HCl (Epinephrine 1:10,000) 1 mg IVPUSH ASDIRECTED PRN PRN Reason: ACLS Guidelines Fentanyl (Sublimaze) Confirm Administered Dose 250 mcg .ROUTE .STK-MED ONE Stop: 07/27/19 07:01 Fentanyl (Sublimaze) Confirm Administered Dose 250 mcg .ROUTE .STK-MED ONE Stop: 07/27/19 08:52 Fentanyl (Sublimaze) 50 - 100 mcg IVPUSH Q5M PRN PRN Reason: Pain Hydromorphone HCl (Dilaudid) Confirm Administered Dose 2 mg .ROUTE .STK-MED ONE Stop: 07/27/19 09:32 Cefoxitin Sodium 2 gm/ Premix 50 mls @ 100 mls/hr IV ONETIME ONE Stop: 07/26/19 15:58 Last Admin: 07/26/19 17:13 Dose: 100 mls/hr Cefoxitin Sodium 1 gm/ Premix 50 mls @ 100 mls/hr IV Q6H [facility] Lactated Ringer's (Ringers, Lactated) 1,000 mls @ 125 mls/hr IV ASDIRECTED [facility] Last Admin: 07/26/19 16:50 Dose: 125 mls/hr Lactated Ringer's (Ringers, Lactated) 1,000 mls @ 125 mls/hr IV ASDIRECTED [facility] Last Admin: 07/29/19 02:30 Dose: 125 mls/hr Cefoxitin Sodium 1 gm/ Premix 50 mls @ 100 mls/hr IV Q6H [facility] Stop: 07/28/19 23:30 Last Admin: 07/27/19 15:44 Dose: Not Given Cefoxitin Sodium 1 gm/ Premix 50 mls @ 100 mls/hr IV Q6H [facility] Stop: 07/28/19 23:30 Last Admin: 07/28/19 20:52 Dose: 100 mls/hr Cefoxitin Sodium 2 gm/ Premix 50 mls @ as directed IV .STK-MED ONE Stop: 07/26/19 17:14 Lactated Ringer's (Ringers, Lactated) 1,000 mls @ as directed IV .STK-MED ONE Stop: 07/26/19 17:03 Ketorolac Tromethamine (Toradol) Confirm Administered Dose 30 mg .ROUTE .STK- MED ONE Stop: 07/27/19 10:10 Lidocaine (Xylocaine-Mpf 2%) Confirm Administered Dose 5 ml .ROUTE .STK-MED ONE Stop: 07/27/19 07:01 Midazolam HCl (Versed 1 Mg/Ml) Confirm Administered Dose 2 mg .ROUTE .STK-MED ONE Stop: 07/27/19 07:01 Morphine Sulfate (Morphine) 0 mg IVPUSH Q1H PRN PRN Reason: Pain (severe 7-10) Last Admin: 07/26/19 16:58 Dose: 5 mg Morphine Sulfate (Morphine) Confirm Administered Dose 10 mg .ROUTE .STK-MED ONE Stop: 07/26/19 19:36 Last Admin: 07/26/19 19:58 Dose: Not Given Morphine Sulfate (Morphine) 5 mg IVPUSH .STK-MED ONE Stop: 07/26/19 16:59 Naloxone HCl (Narcan) 0.1 mg IVPUSH ASDIRECTED PRN PRN Reason: Respiratory Depression Ondansetron HCl (Zofran) Confirm Administered Dose 4 mg .ROUTE .STK-MED ONE Stop: 07/27/19 07:01 Phenylephrine HCl (Phenylephrine In Ns 100 Mcg/Ml) Confirm Administered Dose 1 mg .ROUTE .STK-MED ONE Stop: 07/27/19 08:32 Propofol (Diprivan 20 Ml) Confirm Administered Dose 200 mg .ROUTE .STK-MED ONE Stop: 07/27/19 07:00 Rocuronium [place] (Zemuron) Confirm Administered Dose 100 mg .ROUTE .STK-MED ONE Stop: 07/27/19 07:01 Sugammadex Sodium (Bridion) Confirm Administered Dose 200 mg .ROUTE .STK-MED ONE Stop: 07/27/19 10:04 - Exam Wound/Incisions: Healing Well, No Drainage Quality Assessment: Supplemental Oxygen, DVT Prophylaxis. No: Central Line/PICC , Urine Catheter, Skin Breakdown General: Alert, Oriented, Cooperative, No Acute Distress HEENT: Pupils Equal, Pupils Reactive, EOMI. No: Scleral Icterus Neck: Supple, Trachea Midline Lungs: Clear to Auscultation, Normal Respiratory Effort Cardiovascular: Regular Rate, Regular Rhythm GI/Abdominal Exam: Normal Bowel Sounds, Soft, Non-Tender. No: Guarding, Rigid, Rebound, Tender, Abnormal Bowel Sounds Extremities: Normal Inspection Skin: Warm, Dry, Intact Neurological: No New Focal Deficit Psy/Mental Status: Alert, Normal Affect, Normal Mood Sepsis Event Note - Evaluation Sepsis Screening Result: No Definite Risk - Focused Exam Vital Signs: Vital Signs Temp Pulse Resp BP Pulse Ox 07/29/19 04:25 96.8 F 109 H 20 137/77 91 L Date Exam was Performed: 07/29/19 Time Exam was Performed: 13:41 - Problem List & Annotations (1) Acute gangrenous cholecystitis SNOMED Code(s): 71111658 Code(s): K81.0 - ACUTE CHOLECYSTITIS Status: Acute Priority: High Current Visit: Yes (2) Cholelithiasis SNOMED Code(s): 501035515 Code(s): K80.20 - CALCULUS OF GALLBLADDER W/O CHOLECYSTITIS W/O OBSTRUCTION Status: Acute Priority: High Current Visit: No Qualifiers: Cholelithiasis location: gallbladder Cholecystitis presence: with cholecystitis Cholecystitis acuity: acute Biliary obstruction: without biliary obstruction Qualified Code(s): K80.00 - Calculus of gallbladder with acute cholecystitis without obstruction - Problem List Review Problem List Initiated/Reviewed/Updated: Yes - My Orders Last 24 Hours: Active Orders 24 hr Category Date Time Status May Shower [RC] ASDIRECTED Care 07/29/19 13:40 Ordered Medication Orders Acetaminophen (Tylenol) 325 mg PO Q4H PRN PRN Reason: Fever Greater Than 101 Hydrocodone Bitart/Acetaminophen ([place] 325-5 Mg) 1 - 2 tab PO Q4H PRN PRN Reason: Pain Last Admin: 07/29/19 06:25 Dose: 2 tab Admin: 07/29/19 02:36 Dose: 2 tab Admin: 07/28/19 22:46 Dose: 2 tab Admin: 07/28/19 18:07 Dose: 2 tab Admin: 07/28/19 02:59 Dose: 2 tab Admin: 07/27/19 22:32 Dose: 2 tab Admin: 07/27/19 18:33 Dose: 2 tab Admin: 07/27/19 12:57 Dose: 2 tab Admin: 07/26/19 23:20 Dose: 2 tab Admin: 07/26/19 17:54 Dose: 1 tab Hydrocodone Bitart/Acetaminophen ([place] 325-5 Mg) 1 - 2 tab PO Q4H PRN PRN Reason: Pain (moderate 4-6) Last Admin: 07/29/19 10:37 Dose: 2 tab Admin: 07/28/19 14:18 Dose: 2 tab Admin: 07/28/19 09:42 Dose: 2 tab Al Hydroxide/Mg Hydroxide (Mag-Al Plus) 30 ml PO Q3H PRN PRN Reason: Heartburn Last Admin: 07/29/19 06:26 Dose: 30 ml Admin: 07/28/19 18:45 Dose: 30 ml Admin: 07/28/19 12:20 Dose: 30 ml Admin: 07/28/19 08:41 Dose: 30 ml Lactated Ringer's (Ringers, Lactated) 1,000 mls @ 80 mls/hr IV ASDIRECTED [facility] Last Admin: 07/29/19 10:39 Dose: 125 mls/hr Morphine Sulfate (Morphine) 0 mg IVPUSH Q1H PRN PRN Reason: Pain (severe 7-10) Last Admin: 07/29/19 13:27 Dose: 2 mg Admin: 07/29/19 01:27 Dose: 2 mg Admin: 07/28/19 08:17 Dose: 2 mg Admin: 07/27/19 23:59 Dose: 2 mg Admin: 07/27/19 19:33 Dose: 2 mg Admin: 07/27/19 17:20 Dose: 5 mg Admin: 07/27/19 14:59 Dose: 2 mg Admin: 07/27/19 12:19 Dose: 5 mg Admin: 07/26/19 19:46 Dose: 5 mg Morphine Sulfate (Morphine) 0 mg IVPUSH Q30M PRN PRN Reason: Pain Ondansetron HCl (Zofran) 4 mg IVPUSH Q6H PRN PRN Reason: Nausea/Vomiting Last Admin: 07/28/19 08:36 Dose: 4 mg Admin: 07/27/19 22:49 Dose: 4 mg Ondansetron HCl (Zofran) 4 mg IVPUSH Q6H PRN PRN Reason: Nausea/Vomiting - Assessment Assessment (Free Text/Narrative):: Patient continues to show slow but steady improvement. Ayush drain removed without difficulty. On-Q removed. Incision clean and dry. - Plan Plan (Free Text/Narrative):: Increase activity. Slow IV. May shower.
[2019-07-30] MEDS: Aluminum Hydroxide/Magnesium Hydroxide/Simethicone Susp 30 ML Cup PO PRN (01:18)
[2019-07-30] MEDS: Acetaminophen/HYDROcodone 325-5 MG Tab PO PRN ×2 (03:47→08:10)
--- NOTE | 2019-07-30 10:50 | PCM.DCSUM1 ---
Discharge Summary - Hospital Course Free Text/Narrative:: Patient is a 43-year-old gentleman who initially presented to the emergency room this past Thursday, complaining of right upper quadrant pain. He was felt to have an acute cholecystitis but declined admission. Symptoms progressed over the next 48 hours and he presented to my office this past Thursday. He is admitted to the hospital with a diagnosis of cholelithiasis with acute cholecystitis. He was started on antibiotics and taken to the operating room on Thursday. Attempted laparoscopic cholecystectomy was made. The gallbladder was acutely inflamed and gangrenous and he was converted to an open cholecystectomy. He has done well postoperatively and feels he is ready for discharge. HPI Initial Comments: See clinic dictation. Diagnosis: Stroke: No - Discharge Data Discharge Date: 07/30/19 Discharge Disposition: Home, Self-Care 01 Condition: Good - Referral to Home Health Primary Care Physician: PCP Unknown - Discharge Diagnosis/Problem(s) (1) Acute gangrenous cholecystitis SNOMED Code(s): 52910182 ICD Code: K81.0 - ACUTE CHOLECYSTITIS Status: Acute Priority: High Current Visit: Yes (2) Cholelithiasis SNOMED Code(s): 354307522 ICD Code: K80.20 - CALCULUS OF GALLBLADDER W/O CHOLECYSTITIS W/O OBSTRUCTION Status: Acute Priority: High Current Visit: No Qualifiers: Cholelithiasis location: gallbladder Cholecystitis presence: with cholecystitis Cholecystitis acuity: acute Biliary obstruction: without biliary obstruction Qualified Code(s): K80.00 - Calculus of gallbladder with acute cholecystitis without obstruction - Patient Summary/Data Operative Procedure(s) Performed: Attempted laparoscopic cholecystectomy with conversion to open cholecystectomy - Patient Instructions Diet, Other: Low fat diet Activity: No Lifting Over 25 Pounds (for 6 weeks) Driving: Do Not Drive (for at least 48 hours) Showering/Bathing: May Shower Wound/Incision Care: Keep Operative Site/Wound Site Clean and Dry Notify Provider of: Fever, Increased Pain - Discharge Plan Prescriptions/Med Rec: Acetaminophen/HYDROcodone [[place] 325-5 MG] 1 tab PO Q6H PRN #25 tablet PRN Reason: Pain (Moderate 4-6) Home Medications: Home Meds Acetaminophen/HYDROcodone [[place] 325-5 MG] 1 tab PO Q6H PRN #25 tablet 07/30/19 [Rx] Patient Handouts: Open Cholecystectomy, Open Cholecystectomy, Care After Referrals: Carlos Quigley MD [Physician] - 08/04/19 8:30 am - Discharge Summary/Plan Comment DC Time >30 min.: No - General Info Date of Service: 07/30/19 Admission Dx/Problem (Free Text: Cholelithiasis with acute cholecystitis Functional Status: Reports: Pain Controlled, Tolerating Diet, Ambulating, Urinating, Incentive Spirometry. Denies: New Symptoms - Review of Systems General: Denies: Fever, Weakness, Fatigue, Malaise, Chills HEENT: Reports: No Symptoms Pulmonary: Denies: Shortness of Breath, Pleuritic Chest Pain, Cough Cardiovascular: Denies: Chest Pain Gastrointestinal: Reports: Abdominal Pain (Incisional), Flatus. Denies: Constipation, Diarrhea, Difficulty Swallowing, Hematochezia, Melena, Nausea, Vomiting Genitourinary: Denies: Dysuria, Frequency, Burning, Pain, Urgency Musculoskeletal: Reports: No Symptoms Skin: Reports: No Symptoms Neurological: Reports: No Symptoms Psychiatric: Reports: No Symptoms - Patient Data Vitals - Most Recent: Last Vital Signs Temp 96.7 F 07/30/19 07:36 Pulse 86 07/30/19 07:36 Resp 16 07/30/19 07:36 BP 151/92 H 07/30/19 07:36 Pulse Ox 93 L 07/30/19 07:36 Weight - Most Recent: 272 lb 14.4 oz I&O - Last 24 hours: Intake & Output 07/29/19 07/30/19 07/30/19 19:59 03:59 11:59 Intake Total 1300 2475 Output Total 1000 1800 Balance 300 675 Med Orders - Current: Current Medications Acetaminophen (Tylenol) 325 mg PO Q4H PRN PRN Reason: Fever Greater Than 101 Hydrocodone Bitart/Acetaminophen ([place] 325-5 Mg) 1 - 2 tab PO Q4H PRN PRN Reason: Pain (moderate 4-6) Last Admin: 07/30/19 08:10 Dose: 2 tab Al Hydroxide/Mg Hydroxide (Mag-Al Plus) 30 ml PO Q3H PRN PRN Reason: Heartburn Last Admin: 07/30/19 01:18 Dose: 30 ml Lactated Ringer's (Ringers, Lactated) 1,000 mls @ 80 mls/hr IV ASDIRECTED JOBY Last Admin: 07/29/19 23:13 Dose: 80 mls/hr Morphine Sulfate (Morphine) 0 mg IVPUSH Q30M PRN PRN Reason: Pain Ondansetron HCl (Zofran) 4 mg IVPUSH Q6H PRN PRN Reason: Nausea/Vomiting Discontinued Medications Hydrocodone Bitart/Acetaminophen ([place] 325-5 Mg) 1 - 2 tab PO Q4H PRN PRN Reason: Pain Last Admin: 07/29/19 06:25 Dose: 2 tab Albuterol (Proventil Neb Soln) 2.5 mg NEB ONETIME PRN PRN Reason: Wheezing Atropine Sulfate (Atropine 0.1 Mg/Ml) 0.5 mg IVPUSH ASDIRECTED PRN PRN Reason: Hypo-perfusion Atropine Sulfate (Atropine 0.1 Mg/Ml) 1 mg IVPUSH ASDIRECTED PRN PRN Reason: Hypo-Perfusion Bupivacaine HCl (Sensorcaine-Mpf 0.5%) Confirm Administered Dose 30 ml .ROUTE .STK-MED ONE Stop: 07/27/19 07:30 Bupivacaine HCl (Marcaine 0.5%) Confirm Administered Dose 120 ml .ROUTE .STK- MED ONE Stop: 07/27/19 07:40 Cefazolin Sodium (Ancef) Confirm Administered Dose 1 gm .ROUTE .STK-MED ONE Stop: 07/27/19 07:30 Dextrose/Water (Dextrose 50% In Water) 50 ml IVPUSH ASDIRECTED PRN PRN Reason: Hypoglycemia Ephedrine Sulfate (Ephedrine Sulfate) Confirm Administered Dose 50 mg .ROUTE .STK-MED ONE Stop: 07/27/19 08:47 Epinephrine HCl (Epinephrine 1:10,000) 1 mg IVPUSH ASDIRECTED PRN PRN Reason: ACLS Guidelines Fentanyl (Sublimaze) Confirm Administered Dose 250 mcg .ROUTE .STK-MED ONE Stop: 07/27/19 07:01 Fentanyl (Sublimaze) Confirm Administered Dose 250 mcg .ROUTE .STK-MED ONE Stop: 07/27/19 08:52 Fentanyl (Sublimaze) 50 - 100 mcg IVPUSH Q5M PRN PRN Reason: Pain Hydromorphone HCl (Dilaudid) Confirm Administered Dose 2 mg .ROUTE .STK-MED ONE Stop: 07/27/19 09:32 Cefoxitin Sodium 2 gm/ Premix 50 mls @ 100 mls/hr IV ONETIME ONE Stop: 07/26/19 15:58 Last Admin: 07/26/19 17:13 Dose: 100 mls/hr Cefoxitin Sodium 1 gm/ Premix 50 mls @ 100 mls/hr IV Q6H [facility] Lactated Ringer's (Ringers, Lactated) 1,000 mls @ 125 mls/hr IV ASDIRECTED [facility] Last Admin: 07/26/19 16:50 Dose: 125 mls/hr Lactated Ringer's (Ringers, Lactated) 1,000 mls @ 125 mls/hr IV ASDIRECTED [facility] Last Admin: 07/29/19 02:30 Dose: 125 mls/hr Cefoxitin Sodium 1 gm/ Premix 50 mls @ 100 mls/hr IV Q6H [facility] Stop: 07/28/19 23:30 Last Admin: 07/27/19 15:44 Dose: Not Given Cefoxitin Sodium 1 gm/ Premix 50 mls @ 100 mls/hr IV Q6H [facility] Stop: 07/28/19 23:30 Last Admin: 07/28/19 20:52 Dose: 100 mls/hr Cefoxitin Sodium 2 gm/ Premix 50 mls @ as directed IV .STK-MED ONE Stop: 07/26/19 17:14 Lactated Ringer's (Ringers, Lactated) 1,000 mls @ as directed IV .STK-MED ONE Stop: 07/26/19 17:03 Ketorolac Tromethamine (Toradol) Confirm Administered Dose 30 mg .ROUTE .STK- MED ONE Stop: 07/27/19 10:10 Lidocaine (Xylocaine-Mpf 2%) Confirm Administered Dose 5 ml .ROUTE .STK-MED ONE Stop: 07/27/19 07:01 Midazolam HCl (Versed 1 Mg/Ml) Confirm Administered Dose 2 mg .ROUTE .STK-MED ONE Stop: 07/27/19 07:01 Morphine Sulfate (Morphine) 0 mg IVPUSH Q1H PRN PRN Reason: Pain (severe 7-10) Last Admin: 07/26/19 16:58 Dose: 5 mg Morphine Sulfate (Morphine) Confirm Administered Dose 10 mg .ROUTE .STK-MED ONE Stop: 07/26/19 19:36 Last Admin: 07/26/19 19:58 Dose: Not Given Morphine Sulfate (Morphine) 0 mg IVPUSH Q1H PRN PRN Reason: Pain (severe 7-10) Last Admin: 07/29/19 13:27 Dose: 2 mg Morphine Sulfate (Morphine) 5 mg IVPUSH .STK-MED ONE Stop: 07/26/19 16:59 Naloxone HCl (Narcan) 0.1 mg IVPUSH ASDIRECTED PRN PRN Reason: Respiratory Depression Ondansetron HCl (Zofran) 4 mg IVPUSH Q6H PRN PRN Reason: Nausea/Vomiting Last Admin: 07/28/19 08:36 Dose: 4 mg Ondansetron HCl (Zofran) Confirm Administered Dose 4 mg .ROUTE .STK-MED ONE Stop: 07/27/19 07:01 Phenylephrine HCl (Phenylephrine In Ns 100 Mcg/Ml) Confirm Administered Dose 1 mg .ROUTE .STK-MED ONE Stop: 07/27/19 08:32 Propofol (Diprivan 20 Ml) Confirm Administered Dose 200 mg .ROUTE .STK-MED ONE Stop: 07/27/19 07:00 Rocuronium [place] (Zemuron) Confirm Administered Dose 100 mg .ROUTE .STK-MED ONE Stop: 07/27/19 07:01 Sugammadex Sodium ([place]) Confirm Administered Dose 200 mg .ROUTE .STK-MED ONE Stop: 07/27/19 10:04 - Exam Quality Assessment: Reports: Supplemental Oxygen. Denies: Central Line/PICC, Urine Catheter General: Reports: Alert, Oriented, Cooperative, No Acute Distress HEENT: Reports: Pupils Equal, Pupils Reactive, EOMI. Denies: Scleral Icterus Neck: Reports: Supple, Trachea Midline Lungs: Reports: Clear to Auscultation, Normal Respiratory Effort, Decreased Breath Sounds Cardiovascular: Reports: Regular Rate, Regular Rhythm GI/Abdominal Exam: Soft, Non-Tender, Distended, Abnormal Bowel Sounds ( Hypoactive). No: Guarding, Rigid, Rebound, Tender (Male) Exam: No Hernia Rectal (Males) Exam: Deferred Back Exam: Reports: Normal Inspection Extremities: Normal Inspection, Normal Range of Motion Skin: Reports: Warm, Dry, Intact Wound/Incisions: Reports: Healing Well, No Drainage. Denies: Erythema Neurological: Reports: No New Focal Deficit Psy/Mental Status: Reports: Alert, Normal Affect, Normal Mood Discharge Operative/Procedures - Procedures Performed Operations/Procedure Comment: Open cholecystectomy
== END 2019-07-30 12:13 | disposition home or self-care (01) | DRG 416 ==
LOC: MW.CHGS 14:20 → MW.MS 17:05 → OBSVTOIN 07-27 10:50 → MW.MS 07-27 10:51
PROVIDERS: ADMIT Surgery; ATTEND Surgery
PROC: 0FT40ZZ Resection of Gallbladder, Open Approach (ICD-10-PCS; principal; 2019-07-27)
PROC: 0FJ44ZZ Inspection of Gallbladder, Percutaneous Endoscopic Approach (ICD-10-PCS; 2019-07-27)
DX: K80.00 Calculus of gallbladder with acute cholecystitis without obstruction (principal); F41.9 Anxiety disorder, unspecified; F17.210 Nicotine dependence, cigarettes, uncomplicated; Z79.2 Long term (current) use of antibiotics
CPT/HCPCS: 00790; 36415; 82962; 85025; 88304; 96361; 96365; 96375; 96376; A9270-GY; G0378; G0379; J0690; J0694; J1170; J1885; J2001; J2250; J2270; J2370; J2405; J2704; J3010; J3490; J7120